=== PATIENT | female | born 1980 | race Caucasian/White ===

== ENCOUNTER 2018-02-09 13:10 | Day surgery (SDC) | payer OTHER ==
[2018-01-04 09:49] VITALS: BMI 26.6
[2018-02-09] MEDS ORDERED: Lidocaine Hydrochloride 10 ML INJ ONE (13:47)
[2018-02-09] MEDS ORDERED: Dexamethasone 4 mg/1 ml ONE ×2 (13:47→16:16)
[2018-02-09] MEDS ORDERED: Bupivacaine HCl 0.5% PF (30 ml) Inj ONE (13:47)
[2018-02-09] MEDS ORDERED: Bacitracin Ointment 30 GM TUBE ONE (13:48)
[2018-02-09] MEDS ORDERED: Triamcinolone Acetonide 40 mg/mL Inj ONE (13:48)
[2018-02-09] MEDS ORDERED: ceFAZolin IV 1 gm in Dextrose 0 GM/0 ML BAG IVPB ONE (13:49)
[2018-02-09] MEDS ORDERED: Propofol 10 mg/ml Inj (20 ML) ONE ×4 (14:37→15:38)
[2018-02-09] MEDS ORDERED: Midazolam 2 MG/2 ML VIAL ONE (14:37)
[2018-02-09] MEDS ORDERED: ceFAZolin IV 1 gm in Dextrose 1 GM/50 ML BAG IVPB ONE (14:43)
[2018-02-09] MEDS ORDERED: Lactated Ringer's 1,000 ML IV SCH (16:30)
--- NOTE | 2018-02-09 16:35 | PCM.SURG1 ---
Surgeon's Initial Post Op Note - Surgeon's Notes Surgeon: Dr. Marco A Kuo Panel Saw Operator: Dr. Jil Naik DPM PGY-2 Type of Anesthesia: IV Sedation, Local Anesthesia Administered By: Dr. Plaza Pre-Operative Diagnosis: Left foot Hallux abducto-valgus. Left foot Tailor's Bunion Operative Findings: See dictation. M: 3-0, 4-0 vicryl, 4-0 prolene. I: 20 cc of 1:1 mixture of 1% lidocaine plain: 0.5% marcain plain - preop. 10 cc of 0.5% marcain plain, 6 mg of dexamethasone - postop Post-Operative Diagnosis: Same Operation Performed: Left foot Silver bunionectomy. Left foot Tailor's bunionectomy Specimen/Specimens Removed: Medial and lateral eminance Estimated Blood Loss: EBL {In ML}: 5 Blood Products Given: N/A Drains Used: No Drains Post-Op Condition: Good Date of Surgery/Procedure: 02/09/18 Time of Surgery/Procedure: 16:35
[2018-02-09] MEDS ORDERED: Oxycodone/Acetaminophen 5/325 mg Tab PO PRN ×2 (16:36)
[2018-02-10 00:24] VITALS: BP 102/64; PULSE 63; RESP 18; TEMP 97.8; O2SAT 96
--- NOTE | 2018-02-10 07:16 | OP ---
PROCEDURE DATE: 02/09/2018 PREOPERATIVE DIAGNOSES: Left foot hallux abductovalgus, left foot tailor's bunion. POSTOPERATIVE DIAGNOSES: Left foot hallux abductovalgus, left foot tailor's bunion. PROCEDURES PERFORMED: 1. Left foot Silver bunionectomy. 2. Left foot tailor's bunionectomy. SURGEON: Marco A Kuo DPM GIMP TACKER: Jil Naik DPM, PGY-2. ANESTHESIOLOGIST: Dr. Plaza. ANESTHESIA: IV sedation with local. INDICATIONS: The patient is a 37-year-old female with the above diagnoses. The patient is being treated by Dr. Kuo in his office as an outpatient basis where he has exhausted multiple forms of conservative treatment at this time, which include but are not limited to at home physical therapy, stretching exercises, injections, and oral anti-inflammatories. The patient seeks surgical interventions at this time. All risks, benefits, and possible complications of the proposed procedure have been explained to the patient in greater length. The patient verbalizes understanding and wishes to proceed with the procedure. All questions were answered. No guarantees were given nor implied. Consent was signed, and n.p.o. status was confirmed prior to taking the patient to the operating room. OPERATIVE PROCEDURE: The patient was brought into the operating room and was placed on the operating room table in supine position. A well-padded pneumatic ankle tourniquet was applied to the patient's left ankle. Once the IV sedation was achieved, local injection of 20 mL of 1% lidocaine plain with 0.5% Marcaine plain and 1:1 mixture was introduced via local Aguilar block type fashion to the patient's left foot. Once the local anesthesia was achieved, the foot was then prepped and draped in the usual sterile manner, and the procedure began. Left foot Silver bunionectomy: Attention was directed to the dorsal medial aspect of the first metatarsal head phalangeal joint of the left foot where an approximately 4 cm linear longitudinal incision was made medial and parallel to the tendon of the extensor hallucis longus and involved the contour of the deformity, the incision was deepened through the subcutaneous tissue down through the level of periosteum using sharp and blunt dissection. Care was taken to identify and retract all vital neurovascular structures. All bleeders were cauterized and ligated as necessary. At this time, an inverted L-type capsulotomy was performed over the dorsal aspect of the first metatarsophalangeal joint. The periosteal and capsular structures were then carefully dissected free of the osseous attachment and reflected medially and laterally thus exposing the head of the first metatarsal into the operative site. The medial eminence as well as the dorsal aspect of the first metatarsal head was noted to be grossly hypertrophied in nature. Next, utilizing an oscillating bone saw, the dorsal and medial prominences were resected and passed from the operative field and was sent to the pathology. At this time, the wound was then irrigated with copious amount of sterile saline. The periosteal and capsular structures were then reapproximated with the use of 3-0 Vicryl. The subcutaneous tissue was then closed using 4-0 Vicryl. The skin was then reapproximated using 4-0 Prolene. Left foot tailor's bunionectomy: Attention was directed to the dorsal lateral aspect of the fifth metatarsal head phalangeal joint of the left foot, where an approximately 4 cm linear longitudinal incision was made lateral and parallel to the tendon of the extensor digitorum longus and involved the contour of the deformity, the incision was then deepened through the subcutaneous tissue down through the level of periosteum using sharp and blunt dissection. Care was taken to retract and identify all vital neurovascular structures. All bleeders were cauterized and ligated as necessary. At this time, an inverted L-type capsulotomy was performed over the dorsal aspect of the fifth metatarsophalangeal joint. The periosteal and capsular structures were then carefully dissected free of the osseous attachments, thus exposing the head of the fifth metatarsal into the operative site. The lateral eminence of the fifth metatarsal head was noted to be grossly hypertrophied in nature. Next, utilizing the oscillating bone saw, the dorsal and the lateral prominences were resected and passed from the operative field and were sent to pathology. At this time, the surgical wound was irrigated with copious amount of sterile saline. At this time, the periosteal and capsular structures were reapproximated with the use of 3-0 Vicryl. The subcutaneous tissue was then closed using 4-0 Vicryl. The skin was then reapproximated using 5-0 Prolene. The surgical site was then injected with 10 mL of 0.5% Marcaine plain and 6 mg of dexamethasone. The surgical site was then sterilely dressed with bacitracin-soaked Adaptic, 4 x 4 sling, and YESSI bandage. Pneumatic ankle tourniquet was deflated from the left foot with vascular return noted in the patient's left foot. POSTOPERATIVE CONDITION: The patient tolerated the anesthesia and procedure well and was escorted to the recovery room with vital signs stable and neurovascular status intact to the patient's left foot. The patient will remain weightbearing as tolerated to the heel and a surgical shoe to the left lower extremity. All of the postoperative instructions were provided prior to taking to the operating room. The patient will follow up with Dr. Kuo in his office within one week. Jil Naik DPM Marco A Kuo DPM
== END 2018-02-09 18:20 | disposition home or self-care (01) ==
LOC: C.SDS 13:10
PROVIDERS: ATTEND Podiatrist Foot & Ankle Surgery
DX: M21.622 Bunionette of left foot (principal); M20.12 Hallux valgus (acquired), left foot
CPT/HCPCS: 28292; 97116; 97161; G8978; G8979; G8980; J0690; J1100; J2001; J2250; J2704; J3010; J3301